=== PATIENT | male | born 1970 | race Caucasian/White ===

== ENCOUNTER 2017-06-12 09:53 | Emergency (ER) | payer BC ==
[~2017-06-12] VITALS: Ht 182.9 cm; Wt 117.9 kg
[2017-06-12] MEDS ORDERED: NO HOME MEDICATION XX (10:09)
== END 2017-06-12 11:58 ==
LOC: EDMED 09:53
DX: S90.31XA Contusion of right foot, initial encounter (principal); W11.XXXA Fall on and from ladder, initial encounter; Y92.019 Unspecified place in single-family (private) house as the place of occurrence of the external cause